=== PATIENT | female | born 2000 | race Caucasian/White ===

== ENCOUNTER 2024-07-01 19:30 | Emergency (ER) | payer BC, SELFPAY ==
[2024-07-01 19:32] VITALS: BP 131/74
[2024-07-01 19:33] VITALS: PULSE 113; RESP 19; O2SAT 100
[2024-07-01 19:34] VITALS: BP 131/74; PULSE 113; RESP 20; TEMP 36.4; O2SAT 100
--- NOTE | 2024-07-01 19:59 | ED_ITS ---
HPI - Anxiety General Chief Complaint: Anxiety Stated Complaint: panic attack Time Seen by Provider: 07/01/24 19:43 Source: EMS Mode of arrival: EMS History of Present Illness HPI narrative: 23-year-old female felt anxious, history of ongoing marijuana use but not any new preparation or dose, no nausea or vomiting, also complains of by epigastric area discomfort. No black or red stools. No injury or trauma new activities. She has not tried any medications for these. She feels improved. Related Data Previous Rx's Medication Instructions Recorded ondansetron 4 mg disintegrating 4 mg PO Q6-8H PRN nausea and 08/09/21 tablet vomiting #7 tabs Allergies Allergy/AdvReac Type Severity Reaction Status Date / Time No Known Drug Allergies Allergy Unverified 08/09/21 13:42 Patient History Social History Smoking Status: Current every day smoker Smoking Status: Current every day smoker tobacco type: vaping Exam Narrative Exam Narrative: GENERAL: Well-developed patient, in mild distress. HEAD: Atraumatic. Normocephalic. EYES: Pupils equal round and reactive. Extraocular motions intact. No scleral icterus. No injection or drainage. ENT: Nose without bleeding, purulent drainage. Throat without erythema, tonsillar hypertrophy or exudate. Airway patent. NECK: Trachea midline. Non tender CARDIOVASCULAR: Regular rate and rhythm without murmurs, gallops, or rubs. RESPIRATORY: Clear to auscultation. Breath sounds equal bilaterally. No wheezes, rales, or rhonchi. GASTROINTESTINAL: Abdomen nondistended, mild epigastric tenderness, no guarding or rebound tenderness. EXTREMITIES: No edema or joint tenderness. BACK: Nontender without deformity or crepitance. No flank tenderness. NEURO: AOx3. Motor functions grossly nonfocal SKIN: No rash or erythema of visible areas Initial Vital Signs Initial Vital Signs: Vital Signs Blood Pressure 131/74 07/01/24 19:32 Course Orders Ordered: ED Orders 07/01/24 20:05 Urine Drug Screen, Rapid Stat Vital Signs Vital signs: Vital Signs - 8 hr 07/01/24 19:34 Temperature 97.5 F L Pulse Rate 113 H Respiratory Rate 20 Blood Pressure 131/74 Pulse Oximetry 100 Oxygen Delivery Method Room Air MDM - Anxiety Lab Data Labs: Lab Results 07/01/24 Range/Units 20:05 U Opiates 300ng/mL cut Negative (Negative) Ur Oxycodone Screen Negative (Negative) Urine Methadone Screen Negative (Negative) Ur Barbiturates Screen Negative (Negative) U Tricyclic Antidepress Negative (Negative) Ur Phencyclidine Scrn Negative (Negative) Ur Amphetamines Screen Negative (Negative) U Methamphetamines Scrn Negative (Negative) Ur MDMA Scrn (Ecstasy) Negative (Negative) U Benzodiazepines Scrn Negative (Negative) Urine Cocaine Screen Negative (Negative) U Marijuana (THC) Screen Positive H (Negative) Urine pH Normal (Normal) Urine Specific [place] Normal (Normal) Ur Creatinine Normal (Normal) Point of Care Testing Test Results Negative MDM Narrative Medical decision making narrative: 23-year-old female reported anxiety, and epigastric area discomfort. Symptoms seemed to be improved without specific treatment. Urine test negative. Urine drug screen showed presence of marijuana, otherwise negative. We discussed further workup to include blood work, declined. We discussed imaging, declined. We discussed trial of anti anxiety medication such as hydroxyzine, declined. We discussed antacid such as Pepcid, declined but would consider this [id number]. She feels better, does not want any further workup for now. Went home with family. We will follow up with her PCP for further workup as an outpatient for now. Return precautions discussed. Discharged home per patient request. Discharge Plan Departure Patient Disposition: Home Clinical Impression: Anxiety, Marijuana use, Epigastric abdominal pain Instructions: Anxiety Disorders, DI for Anxiety -- Adult Activity Restrictions/Additional Instructions: Anxiety, ongoing marijuana use, no different product or dosage, also epigastric area abdominal discomfort. No fever on triage. Mild tenderness to epigastrium on abdominal exam. Urine test negative. Urine drug screen positive for marijuana otherwise negative. We discussed further workup that might include laboratory studies, declined. We discussed imaging studies, declined. We discussed trial of antianxiety medication such as hydroxyzine, declined. We discussed antacids, declined but might consider taking [id number] as an outpatient. Further workup as an outpatient. Discharged home per your request. Return back to this/nearest emergency department for any change worsening symptoms or any concerns prior. Prescriptions: No Action ondansetron 4 mg tablet,disintegrating 4 mg PO Q6-8H PRN (Reason: nausea and vomiting) Qty: 7 0RF Referrals: Miscellaneous,Doctor [Primary Care Provider] - Stand Alone Forms: Patient Portal/API/Survey
[2024-07-01 20:23] LABS: Ur Creatinine Normal (Normal); Ur Specific Gravity Normal (Normal); Urine Tetrahydrocannabinol Positive (Negative); Urine pH Normal (Normal)
[2024-07-01 20:24] LABS: UR Morphine/Opiate cutoff 300 Negative (Negative); Urine Amphetamines Negative (Negative); Urine Barbiturates Negative (Negative); Urine Benzodiazepines Negative (Negative); Urine Cocaine Negative (Negative); Urine MDMA Negative (Negative); Urine Methadone Negative (Negative); Urine Methamphetamines Negative (Negative); Urine Oxycodone Negative (Negative); Urine Phencyclidine Negative (Negative); Urine Tricyclic Antidepressant Negative (Negative)
[2024-07-01 20:42] VITALS: PULSE 112; O2SAT 91
[2024-07-01 20:43] VITALS: BP 120/65; PULSE 105; O2SAT 100
== END 2024-07-01 20:54 | disposition home or self-care (01) ==
PROVIDERS: Emergency Provider Emergency Medicine
DX: F41.9 Anxiety disorder, unspecified (principal); R10.13 Epigastric pain; F12.90 Cannabis use, unspecified, uncomplicated
CPT/HCPCS: 80305; 81025; 99282